=== PATIENT | male | born 1970 | race Caucasian/White ===

== ENCOUNTER 2016-10-13 00:10 | Inpatient (IN) | payer MEDICAID ==
[~2016-10-13] VITALS: Ht 193 cm; Wt 75.7 kg
[2016-10-13] VITALS (14 sets, daily range): BP systolic 108–155; BP diastolic 68–106
[~2016-10-13 00:10] MED LIST: ACET-687 PO; CIPR500T86 PO; DULO20CA PO; FLAV100T PO; GABA300C10 PO; VARE1TAB20 PO
[2016-10-13] MEDS ORDERED: LACTATED RINGERS 1,000 ML ONE ×3 (05:17→09:12)
[2016-10-13] MEDS ORDERED: LEVAQUIN 100 ML IV ONE ×2 (05:18→06:00)
[2016-10-13] MEDS ORDERED: LACTATED RINGERS 1,000 ML IV SCH ×2 (06:00→09:30)
[2016-10-13] MEDS ORDERED: TYLENOL PO STA ×2 (06:36→09:19)
[2016-10-13] MEDS ORDERED: SODIUM CHLORIDE IR ONE (07:46)
[2016-10-13] MEDS ORDERED: DECADRON ONE (07:53)
[2016-10-13] MEDS ORDERED: XYLOCAINE ONE (07:54)
[2016-10-13] MEDS ORDERED: ZOFRAN ONE (07:54)
[2016-10-13] MEDS ORDERED: TORADOL ONE (07:54)
[2016-10-13] MEDS ORDERED: SUBLIMAZE ONE (07:54)
[2016-10-13] MEDS ORDERED: KETAMINE HCL-Non-Preferred ONE (07:54)
[2016-10-13] MEDS ORDERED: DIPRIVAN IV ONE (07:55)
[2016-10-13] MEDS ORDERED: SENSORCAINE-MPF 0.5% VIAL ONE (08:26)
[2016-10-13] MEDS ORDERED: DILAUDID ONE (09:15)
[2016-10-13] MEDS ORDERED: DEMEROL IV STA (09:20)
[2016-10-13] MEDS ORDERED: PHENERGAN IV STA (09:20)
[2016-10-13] MEDS ORDERED: DEMEROL ONE (09:25)
[2016-10-13] MEDS ORDERED: PHENERGAN ONE (09:25)
[2016-10-13] MEDS ORDERED: LEVAQUIN IV SCH (09:30)
[2016-10-13] MEDS ORDERED: DEMEROL IV PRN (09:30)
[2016-10-13] MEDS ORDERED: NORCO 7.5MG PO PRN (09:30)
[2016-10-13] MEDS ORDERED: PHENERGAN IV PRN (09:30)
[2016-10-13] MEDS ORDERED: NORCO 7.5MG PO ONE (11:24)
[2016-10-13] MEDS: NORCO 7.5MG PO PRN ×2 (11:25→17:29)
--- NOTE | 2016-10-13 13:01 | OPH ---
DATE OF SURGERY: 10/13/2016 PREOPERATIVE DIAGNOSES: 1. Neurogenic bladder. 2. Urinary retention. 3. Multiple large bladder calculi. FINAL DIAGNOSES: 1. Neurogenic bladder. 2. Urinary retention. 3. Multiple large bladder calculi. PROCEDURE: Suprapubic vesicolithotomy with insertion of cystostomy tube. DESCRIPTION OF PROCEDURE: The patient was brought to the operating room, was put in supine position on the operating room table. After the patient was given a satisfactory and adequate general anesthesia, the lower abdomen and the genitalia was then prepped and draped aseptically in the usual manner. First, the urethral Hinojosa catheter was irrigated and was inserted, fluid was instilled into the bladder around 100 mL of fluid and then the catheter was clamped. After the patient was prepped and draped aseptically in the usual manner, a Pfannenstiel suprapubic incision was then done one finger-breadth above the pubic bone. Incision was deepened up to subcutaneous tissue. All bleeders were clamped and fulgurated and the anterior rectus sheath was incised along the and the rectus muscle was spread underneath it. The rectus muscle was then spread on the midline and then the bladder was exposed with the use of a Deejay retractor. The suprapubic area of the bladder was then dissected and then with 2 Allis clamp the top of the bladder was then punctured and the fluid was removed and two clamps were placed at the area of the cystostomy and this was enlarged. At this time, the of the bladder was inspected and multiple large bladder calculi was removed and also the urethral Hinojosa catheter was also removed. After removal of all the stones in the bladder, a 26-Tajik Hinojosa catheter was inserted as the cystostomy tube. The balloon was inflated with 10 mL of sterile water. The bladder was then approximated and it was closed with the use of 0-chromic catgut in an interrupted fashion. After this was done, the bladder was again irrigated. There was no leak noted and the return flow was clear. A Brimfield drain was placed in the space of Retzius and then the rectus muscle was approximated with the use of 0 Vicryl in interrupted fashion and the rectus sheath was also approximated with the use of 0 Vicryl in interrupted fashion. 2-0 plain was used to approximate the subcutaneous tissue and the skin staple was used to approximate the skin. The Brimfield drain was anchored to the skin with the use of 0 silk and also the suprapubic tube was also anchored to the skin with the use of 0 silk. After that dressing was applied. The patient was then awakened, was transferred to the recovery room in stable condition. Joshua Musa MD DR: RAÚL/meme JOB# [id number]
[2016-10-13] MEDS ORDERED: NEURONTIN ONE (13:56)
[2016-10-13] MEDS ORDERED: URISPAS PO ONE (13:56)
[2016-10-13] MEDS: URISPAS PO SCH ×2 (14:11→20:37)
[2016-10-13] MEDS: NEURONTIN PO SCH ×2 (14:11→20:37)
--- NOTE | 2016-10-13 18:55 | NUR ---
Report Received report from EMILY Montgomery
[2016-10-13] MEDS: DEMEROL IV PRN (19:59)
[2016-10-13] MEDS: PHENERGAN IV PRN (19:59)
[2016-10-13] MEDS: CYMBALTA PO SCH (20:37)
[2016-10-14] VITALS: BP 124/76
[2016-10-14] MEDS: NORCO 7.5MG PO PRN ×6 (00:08→23:35)
[2016-10-14] MEDS: DEMEROL IV PRN ×5 (02:12→20:23)
[2016-10-14] MEDS: PHENERGAN IV PRN (02:12)
[2016-10-14 04:00] VITALS: BP 130/82
--- NOTE | 2016-10-14 04:01 | NUR ---
Patient resting in bed with eyes clsoed. Resp even and non labored. No s/s of distress noted at this time. Will continue to monitor. Call light within reach.
[2016-10-14 05:50] LABS: HEMATOCRIT 36.6 % (37.0-53.0); HEMOGLOBIN 11.6 g/dL (13.9-16.3); MEAN CELL HGB 29.9 pg (26-34); MEAN CELL HGB CONCENTRATION 31.7 g/dL (33-37); MEAN CORP VOLUME 94.3 fL (78-100); MEAN PLATELET VOLUME 8.6 fL (7.8-11.0); RED BLOOD CELL 3.88 10^6/uL (4.50-5.90); WHITE BLOOD CELL 16.1 10^3/uL (4.5-11.0)
[2016-10-14] MEDS: LACTATED RINGERS 1,000 ML IV SCH ×2 (05:59→06:00)
[2016-10-14] MEDS ORDERED: LEVAQUIN 100 ML IV ONE (06:00)
--- NOTE | 2016-10-14 06:56 | PRM.ACF1 ---
Admission Criteria Forms AMBULATORY SURGERY EXCEPTION CRITERIA Ambulatory Surgery Exception Criteria ( Place 'X' for any and all applicable criteria): Surgery or procedure performed on ambulatory basis may require inpatient stay for[A] ANY ONE of the following(1)(2)(3)(4)(5)(6)(7)(8)(9): [X] I. A preoperative situation, condition, or finding that warrants inpatient stay as indicated by ANY ONE of the following: [] a) Inpatient care needed because of severity of a disease or condition rather than the surgery (eg, severe cardiac or respiratory disease, severe infection) (15) (16 ) (17) (18) [] b) Emergent procedure (eg, angioplasty for acute ischemia)(19) [] c) Complex surgical approach or situation as indicated by ANY ONE of the following(3): [] i) Open approach needed instead of usual endoscopic, transcatheter, or other less invasive procedure [] ii) Difficult approach because of previous operation [] iii) Airway monitoring required after open neck procedures(20)(21 ) [] iv) Large mass requiring unusually extensive dissection [] v) Additional complicating feature requiring inpatient care (eg , drain management)(22(23): [X] d) Major surgery in a pt with high anesthetic risk as indicated by ANY ONE of the following (2)(3)(5)(7)(8): [X] i) ASA risk class III or higher (severe systemic disease impairing function) [D] [] ii) Advanced age (eg, older than 85 years)(14)(24) [] iii) Symptomatic heart failure(25) [] iv) Symptomatic asthma or COPD(8)(21) [] v) Morbid obesity with hemodynamic or respiratory problems(20)( 21)(26)(27) [] vi) Obstructive sleep apnea(20)(21) [] vii) Former premature infants who are younger than 60 weeks [] viii) High risk for severe postoperative abnormalities (eg, severe postoperative hypocalcemia after parathyroidectomy for severe hyperparathyroidism)(27)( 28) [] ix) Unstable angina(25) [] e) Drug-related risk requiring inpatient stay as indicated by ANY ONE of the following(5)(10)(14)(32)(33) [] i) Procedure requires discontinuing drugs or other therapy (eg , antiarrhythmic medication, antiseizure medication), which necessitates inpatient observation or treatment.(18)(31) [] ii) Major surgery and high risk drug use as indicated by ANY ONE of the following: [] 1) Active abuse of cocaine or similar drug [] 2) Monoamine oxidase inhibitor use [] 3) Other drug identified as posing risk [] f) Inadequate outpatient care situation as indicated by ANY ONE of the following(5)(10)(14)(32)(33) [] i) Patient lives remote from medical facility and procedure has urgent complication potential, and temporary nearby residence cannot be arranged [] ii) Patient will have postprocedure incapacitation and inadequate assistance at home, or alternative level of care cannot be arranged. [] iii) Patient will have long general anesthesia or procedure side effect resolution time, and competent person to stay with patient on first postoperative night at home or alternative level of care cannot be arranged. [] iv) Other inadequate outpatient situation that cannot be handled by other means [] II. A perioperative event, condition, or finding that warrants inpatient stay as indicated by ANY ONE of the following (1)(2)(3): [] a) Inadequate physiologic recovery: cardiovascular, respiratory, or hemodynamic status not normal or near preoperative baseline(18) [] b) Hemodynamic instability [] c) Patient not alert with near normal or baseline mental status [] d) Temperature not normal or as expected and not appropriate for outpatient treatment of condition [] e) Ambulatory or appropriate activity level status not yet achieved post procedure [E](34)(35)(36) [] f) Operative site not appropriate (eg, unexpected or excessive drainage or bleeding) [] g) Postoperative effects not resolved or adequately managed (eg, significant pain or vomiting not appropriate for outpatient or next level of care)(10)(12) [] h) Complicating features requiring inpatient care as indicated by ANY ONE of the following(37): [] i) Severe complications of procedure (eg, bowel injury, airway compromise, vascular injury,severe hemorrhage) [] ii) Extensive (eg, dissection far beyond usual scope of procedure ) or prolonged (eg, 120 minutes beyond usual) surgery needed requiring inpatient postoperative care [] iii) Conversion to an open or complex procedure that requires inpatient care (eg, open vs laparoscopic cholecystectomy, abdominal vs vaginal hysterectomy)(38) [] iv) Comorbid condition or test result identified during or post procedure that requires inpatient care (7) [] v) Malignant hyperthermia(30) [] vi) Other complicating feature requiring inpatient care(22)(23) Inpatient stay may be needed until ALL of the following are present (1)(2)(3)(4) (5)(6)(10)(14)(33)(40): []a) Physiologic recovery: cardiovascular, respiratory, and hemodynamic status normal or near preoperative baseline []b) Hemodynamic stability []c) Patient alert, with near normal or baseline mental status []d) Temperature appropriate: patient afebrile or temperature appropriate for outpt treatment of condition []e) Activity level appropriate: ambulatory or appropriate activity level post procedure []f) Operative site appropriate as indicated by ALL of the following: []i) Site dry or with expected drainage []ii) Any blood noted is as expected for procedure. []g) Postoperative effects resolved or managed as indicated by ALL of the following: []i) Pain management appropriate for outpatient (or next level of) care(10) []ii) Minimal nausea and vomiting: if present, successfully treated with oral medication(12) []iii) Headache, dizziness, or drowsiness (if present) are mild. []h) Voiding status acceptable as indicated by ANY ONE of the following: []i) Voiding spontaneously []ii) No voiding but instructions given for follow-up in 6 to 8 hours []iii) Urinary catheter in place, and instructions given for follow-up []i) Complicating features requiring inpatient care manageable at a lower level of care(37) []j) Comorbid conditions manageable at a lower level of care(37) The original [employer] content created by [employer] has been revised. The portions of the content which have been revised are identified through the use of italic text or in bold, and [employer] has neither reviewed nor approved the modified material. All other unmodified content is copyright [employer]. Please see references footnoted in the original [employer] edition 2016 Is [facility]/Daniel's added/comple: YES JOSE PAINTER [facility] Oct 14, 2016 06:56
[2016-10-14] MEDS: LEVAQUIN IV SCH (07:27)
[2016-10-14 08:00] VITALS: BP 115/73
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
[2016-10-14] MEDS: NEURONTIN PO SCH ×3 (09:23→20:22)
[2016-10-14] MEDS: URISPAS PO SCH ×3 (09:23→20:22)
[2016-10-14] MEDS: CYMBALTA PO SCH ×2 (09:23→20:22)
--- NOTE | 2016-10-14 10:02 | PNH ---
DATE: 10/14/2016 SUBJECTIVE: The patient's postoperative day #1, afebrile. Vital signs are stable. The cystostomy tube is in place and draining clear urine. The dressing is dry. However, the CBC today, the white count went up to over 16,000. So, I will admit the patient today and then change the antibiotic and we will discontinue Levaquin and start with Rocephin 1 gram every 24 hours and with the Tobramycin 80 mg IV piggyback every 8 hours. PLAN: We will repeat the CBC tomorrow. Right now the patient feels comfortable and we will follow him . Joshua Musa MD DR: RAÚL/meme JOB# [id number]
[2016-10-14] MEDS: ROCEPHIN 1,000 MG in NS 100ML 100 ML IV SCH (11:11)
--- NOTE | 2016-10-14 11:42 | NUR ---
ua ua collected from [facility] and sent to lab
[2016-10-14 11:59] LABS: APPEARANCE,URINE HAZY (CLEAR); BILIRUBIN,URINE NEGATIVE (NEGATIVE); PH,URINE 8 (5.0-6.0); UA COLOR YELLOW (YELLOW); UROBILINOGEN,URINE NORMAL (NEGATIVE)
[2016-10-14 12:00] LABS: WBC,URINE TNTC WBC/HPF (0-2)
[2016-10-14] MEDS ORDERED: MISC MC SCH (14:00)
[2016-10-14] MEDS: NEBCIN IV SCH ×2 (14:04→22:00)
[2016-10-14] MEDS: NS IV SCH ×2 (14:04→22:00)
[2016-10-14 16:40] VITALS: BP 106/69
[2016-10-14 16:43] VITALS: BP 125/66
[2016-10-14 20:00] VITALS: BP 106/71
[2016-10-15] VITALS (7 sets, daily range): BP systolic 100–129; BP diastolic 65–90
[2016-10-15] MEDS: DEMEROL IV PRN ×3 (00:40→08:55)
--- NOTE | 2016-10-15 03:12 | NUR ---
patient able to turn self Addendum: 10/15/16 at 0319 by Peace Napier RN RN Amended: Links added.
[2016-10-15] MEDS: LACTATED RINGERS 1,000 ML IV SCH ×2 (04:07→19:45)
[2016-10-15] MEDS: NS IV SCH ×3 (05:11→21:50)
[2016-10-15] MEDS: NEBCIN IV SCH ×3 (05:11→21:50)
[2016-10-15 05:53] LABS: BASOPHIL % 0.1 % (0.0-0.2); EOSINOPHIL # 0.2 10^3/uL (0.0-0.2); EOSINOPHIL % 1.4 % (0.0-5.0); HEMOGLOBIN 10.5 g/dL (13.9-16.3); LYMPHOCYTES # 3.1 10^3/uL (1.0-4.8); LYMPHOCYTES % 18.4 % (24.0-44.0); MEAN CELL HGB 29.8 pg (26-34); MEAN CELL HGB CONCENTRATION 31.8 g/dL (33-37); MEAN CORP VOLUME 93.8 fL (78-100); MEAN PLATELET VOLUME 8.9 fL (7.8-11.0); MONOCYTES # 1.2 10^3/uL (0.3-0.8); MONOCYTES % 6.9 % (5.0-12.0); NEUTROPHIL # 12.3 10^3/uL (1.8-7.7); NEUTROPHILS % 72.9 % (41.0-85.0); RED BLOOD CELL 3.52 10^6/uL (4.50-5.90); RED CELL DISTRIBUTION WIDTH 13.9 % (11.5-14.5); WHITE BLOOD CELL 16.9 10^3/uL (4.5-11.0)
--- NOTE | 2016-10-15 07:00 | NUR ---
REPORT REPORT RECEIVED AND ASSUMED CARE OF PT
[2016-10-15] MEDS: LEVAQUIN IV SCH (08:00)
--- NOTE | 2016-10-15 08:00 | NUR ---
ASSESSMENT ASSESSMENT COMPLETE AT THIS TIME. PT LAYING DOWN IN BED. C/O PAIN TO LOWER ABD 10/10. DEMEROL 25MG IVP ADMINISTERED PER ORDERS. LUNGS CTA. RESPIRATIONS EVEN AND NONLABORED. ABD SOFT AND NONDISTENDED. BOWEL SOUNDS ACTIVE X4. NO SWELLING NOTED TO BLE. RADIAL AND PEDAL PULSES PRESENT AND WNL. ALL NEEDS MET. CALL LIGHT WITHIN REACH.
[2016-10-15] MEDS: NEURONTIN PO SCH ×3 (08:12→20:29)
[2016-10-15] MEDS: NORCO 7.5MG PO PRN ×3 (08:12→19:46)
[2016-10-15] MEDS: URISPAS PO SCH ×3 (08:12→20:29)
[2016-10-15] MEDS: CYMBALTA PO SCH ×2 (08:12→20:29)
--- NOTE | 2016-10-15 11:17 | PNH ---
DATE: 10/15/2016 Postoperative day #2, the patient is afebrile. Cystostomy tube in place, urine is clear. Dressing is dry. However, the white count today went up to 16,900. The patient, at this time, is on Rocephin and tobramycin and we are awaiting the report of the urine culture. The patient's status is stable. He is afebrile and vital signs are stable. He feels comfortable. He is eating well and we will continue to antibiotic, but also give a consultation to Dr. Anastacio Marcial, our Hospitalist for further evaluation. Joshua Musa MD DR: RAÚL/meme JOB# [id number]
[2016-10-15] MEDS: DILAUDID IV PRN ×4 (11:51→23:58)
[2016-10-15] MEDS: ROCEPHIN 1,000 MG in NS 100ML 100 ML IV SCH (11:54)
--- NOTE | 2016-10-15 12:00 | NUR ---
DILAUDID DILAUDID 1MG ADMINISTERED PER PRN ORDERS. EDUCATED PT ON S/S OF REACTION. STATES UNDERSTANDING.
--- NOTE | 2016-10-15 15:45 | NUR ---
IV PAIN MED DR MOSQUEDA NOTIFIED OF PTS REQUEST OF IV PAIN MEDS EVERY 2 HOURS. NO NEW ORDERS RECEIVED AT THIS TIME.
--- NOTE | 2016-10-15 15:48 | NUR ---
BEHAVIOR ENTERED PTS ROOM WITH PAIN MEDICATION AT THIS TIME. PT STATES "THIS IS FUCKING RIDICULOUS. I SHOULD BE GETTING PAIN MEDICATION EVERY 2 HOURS" EXPLAINED PTS PAIN MEDICATION SCHEDULE TO HIM. EXPLAINED THAT SOON THIS NURSE CAME OUT OF OTHER'S PT ROOM PAIN MEDICATION WAS OBTAINED. PT STATES "I DONT GIVE A FUCK. I CAN TAKE THIS AT HOME. I'M LEAVING" PT CALLED AT THIS TIME. EDUCATED PT ON RISKS OF LEAVING WITHOUT PROPER MEDICATION AND ANTIBIOTICS. PTS CONTS TO STATE HE IS LEAVING. PT REFUSES TO TAKEN PAIN MEDICATION. DR MCKEON AND DR MOSQUEDA NOTIFIED. DR. MCKEON WANTS TO SPEAK WITH UPON ARRIVAL.
--- NOTE | 2016-10-15 16:39 | NUR ---
PAIN PT RESTING IN BED WITH EYES CLOSED. NO S/S OF PAIN OR DISCOMFORT. REQUESTING DILAUDID IVP FOR PAIN 03/04 TO LOWER ABD. DILAUDID 1MG IVP ADMINISTERED PER PRN ORDERS. TOLERATED WELL. CONT TO EDUCATED PT ON RISK OF SPESIS. PT STATES "I DONT CARE. I HAVE MEDICINE AT HOME I CAN TAKE"
--- NOTE | 2016-10-15 18:37 | NUR ---
REPORT REPORT GIVEN AND RELINQUISHED CARE
--- NOTE | 2016-10-15 18:40 | NUR ---
RECEIVED REPORT FROM 0630 SHIFT
--- NOTE | 2016-10-15 19:46 | NUR ---
norco 7.5/325 x1 po given for pain
[2016-10-15] MEDS ORDERED: NS 100ML 100 ML IV ONE (20:26)
--- NOTE | 2016-10-15 20:31 | NUR ---
dilaudid 1mg iv given for pain
--- NOTE | 2016-10-15 21:53 | PRM.CONS ---
Consultation Reason for Consult: Reason for Consultation: Urine infection with leukocytosis, referral from Dr Pierre with Urology History of Present Illness Current and Past HX: (1) UTI (urinary tract infection) Status: Acute SEVERITY: MODERATE PERSISTENT ICD Code: N39.0 SNOMED: 81383655 Assessment & Plan: Significant leukocytosis, due to neurologic disease his UTI is not causing dysuria but he does have significant leukocytosis (2) Urinary retention Status: Acute SEVERITY: MODERATE PERSISTENT ICD Code: R33.9 SNOMED: 702174351 Assessment & Plan: Managed by Urology (3) Bladder calculi Status: Acute SEVERITY: MODERATE PERSISTENT ICD Code: N21.0 SNOMED: 92515155 Assessment & Plan: Resolved s/p surgical procedure Social and Family History: History of Patient Comments PMHx - chronic pain PSHx - s/p bladder surgery with suprapubic catheter placement, previous right hand surgery All: NKDA Home meds - please see home med reconciliation SocHx - positive tobacco use, denies alcohol or illicit drug use FamHx - no early CAD or DM Review of Systems Constitutional: No: Chills, Fever, Weakness Eyes: No: Conjunctivae inflammation ENT: No: Mouth swelling, Nose discharge, Throat pain Respiratory: No: Cough, Shortness of breath, Wheezing Cardiovascular: No: Chest Pain, Palpitations, Paroxysmal Noc. Dyspnea Gastrointestinal: : Abdominal PainNo: Nausea, Vomiting Genitourinary: No Dysuria, No Incontinence Musculoskeletal: : back painNo: neck pain Skin: No: Jaundice, Lesions, Rash Neurological: : WeaknessNo: Change in speech, Confusion, Seizures Allergies: Coded Allergies: No Known Allergies (Unverified , 09/17/16) Scheduled Duloxetine Hcl (Cymbalta) 1 CAP PO BID (Reported) Flavoxate Hcl (Flavoxate Hcl) 100 MG PO TID Gabapentin (Gabapentin) 1 CAP PO TID (Reported) Scheduled PRN Acetaminophen With Codeine (Tylenol With Codeine #4 Tablet) 1 TAB PO Q4 PRN PRN PAIN (Reported) Discontinued Medications Ciprofloxacin Hcl (Cipro) 500 MG PO BID Discontinued Reason: No Longer Taking Varenicline Tartrate (Chantix) 1 MG PO BID (Reported) Discontinued Reason: No Longer Taking VTE VTE Risk Total Score: 4 VTE Risk Score VTE Risk: Score 0-1 = Low Risk (Aggressive mobilization; early ambulation; no VTE prophylaxis required) Score 2: Moderate Risk (Intermittent/Pneumatic Compression Device OR Lovenox/Heparin/Coumadin) Score 3-4: High Risk (Intermittent/Pneumatic Compression Device AND Lovenox/Heparin/Coumadin) Score > or =5: Highest Risk (Intermittent/Pneumatic Compression Device AND Lovenox/Heparin/Coumadin) Assessment/Plan Assessment/Plan Assessment/Plan Assessment: Mr Purvis is a 46 year old man s/p bladder surgery for bladder calculus and urinary retention here with: 1. Chronic pain 2. UTI 3. Tobacco abuse Problems: Patient History: No known health problems 19 CHILD 19 CHILD 19 CHILD 19 CHILD Unknown 33 FATHER Plan 1. Chronic pain - continue current pain management, he is asking for Demerol by name, discussed plan for Dilaudid IV for pain control and he voiced understand but later insisted on getting Dilaudid more frequently while refusing Austin and falling asleep shortly after asking for pain medication. 2. UTI - continue current IV antibiotics, follow up urine C&S 3. Tobacco abuse - program counselor on smoking cessation, offered nicotine patch Plan discussed with patient, he is his own decision maker and does understand and concur with plan Time spent 45 minutes Problem Qualifiers (1) UTI (urinary tract infection): Urinary tract infection type: acute cystitis Hematuria presence: without hematuria Qualified Code: N30.00 - Acute cystitis without hematuria YORDY MOSQUEDA MD Oct 15, 2016 21:50
--- NOTE | 2016-10-15 23:05 | NUR ---
pt wears bilateral boots to help with foot drop, c/o pain and sensitivity to b feet. declined scds, because he does not wanrt to go with out boots, report to charge nurse
--- NOTE | 2016-10-15 23:58 | NUR ---
dilaudid 1mg iv given for pain /10
--- NOTE | 2016-10-16 01:16 | NUR ---
SUPINE IN BED RESTING QUIETLY WITH EYES CLOSED NAD OBSERVED CALL LIGHT IN PT REACH
[2016-10-16] MEDS: NORCO 7.5MG PO PRN ×6 (01:58→23:54)
--- NOTE | 2016-10-16 02:00 | NUR ---
NORCO 7.5/325 X1 GIVEN FOR PAIN 12/02
[2016-10-16 04:00] VITALS: BP 116/73
[2016-10-16] MEDS: DILAUDID IV PRN ×5 (04:17→22:01)
--- NOTE | 2016-10-16 04:17 | NUR ---
dilaudid 1mg iv given for pain 01/02
[2016-10-16] MEDS ORDERED: NS 100ML 100 ML IV ONE ×3 (04:19→20:48)
[2016-10-16] MEDS: LACTATED RINGERS 1,000 ML IV SCH ×2 (04:22→18:55)
[2016-10-16] MEDS: NS IV SCH ×3 (05:04→21:51)
[2016-10-16] MEDS: NEBCIN IV SCH ×3 (05:04→21:51)
[2016-10-16 05:27] LABS: BASOPHIL % 0.1 % (0.0-0.2); EOSINOPHIL # 0.4 10^3/uL (0.0-0.2); EOSINOPHIL % 2.6 % (0.0-5.0); HEMATOCRIT 32.3 % (37.0-53.0); HEMOGLOBIN 10.5 g/dL (13.9-16.3); LYMPHOCYTES # 2.2 10^3/uL (1.0-4.8); LYMPHOCYTES % 15.1 % (24.0-44.0); MEAN CELL HGB 30.1 pg (26-34); MEAN CELL HGB CONCENTRATION 32.5 g/dL (33-37); MEAN CORP VOLUME 92.6 fL (78-100); MEAN PLATELET VOLUME 8.5 fL (7.8-11.0); MONOCYTES # 0.9 10^3/uL (0.3-0.8); MONOCYTES % 6.1 % (5.0-12.0); NEUTROPHIL # 11.3 10^3/uL (1.8-7.7); NEUTROPHILS % 75.9 % (41.0-85.0); RED BLOOD CELL 3.49 10^6/uL (4.50-5.90); RED CELL DISTRIBUTION WIDTH 13.7 % (11.5-14.5); WHITE BLOOD CELL 14.8 10^3/uL (4.5-11.0)
[2016-10-16 05:43] LABS: ANION GAP 17.7; CALCIUM 8.7 mg/dL (8.4-10.5); CARBON DIOXIDE 24.8 mmol/L (20.0-32); CREATININE SERUM 0.77 mg/dL (0.59-1.40); GLUCOSE 72 mg/dL (70-110)
--- NOTE | 2016-10-16 06:50 | NUR ---
Report received from DINORAH Camarena and [facility].
--- NOTE | 2016-10-16 06:56 | NUR ---
Patient complained of pain 01/02. Austin 7.5/325 x1 given.
--- NOTE | 2016-10-16 07:30 | NUR ---
Breakfast tray served. Patient refused breakfast which consist of toast and egg. Patient said he cannot look at egg and toast because he was in the hospital for 5 months and that was the only thing he ate every single breakfast. Offered patient if he wants some soup or cracker. Patient declined and he said he will wait for lunch.
[2016-10-16 08:11] VITALS: BP 105/68
[2016-10-16] MEDS: URISPAS PO SCH ×3 (09:15→20:52)
[2016-10-16] MEDS: CYMBALTA PO SCH ×2 (09:15→20:52)
[2016-10-16] MEDS: NEURONTIN PO SCH ×3 (09:15→20:52)
--- NOTE | 2016-10-16 09:17 | NUR ---
Patient complained of pain 02/01. Dilaudid 1 mg IV given.
--- NOTE | 2016-10-16 10:35 | NUR ---
Dr. Musa at bedside. Discuss plan of care with the patient. Repeat CBC tomorrow. Order entered by EMILY Martinez (charge nurse).
[2016-10-16] MEDS: ROCEPHIN 1,000 MG in NS 100ML 100 ML IV SCH (11:14)
--- NOTE | 2016-10-16 11:20 | NUR ---
Report given to EMILY Dimas and [facility].
--- NOTE | 2016-10-16 11:21 | NUR ---
REPORT REPORT RECEIVED FROM PARTS ASSEMBLER. ASSUMED CARE OF PT.
--- NOTE | 2016-10-16 11:41 | PNH ---
DATE: 10/16/2016 Postoperative day #3, the patient is afebrile. Vital signs are stable. Cystostomy tube in place, urine is clear. The CBC today, the white count went down from 16.9 to 14,900 today. The patient is improving. We will continue the Rocephin and tobramycin. We will repeat again the CBC tomorrow and if it is going down some more, he will be discharge and I will remove the Osmin drain tomorrow. The case was discussed with the patient and the patient feels comfortable and doing much better. Joshua Musa MD DR: RAÚL/meme JOB# [id number]
[2016-10-16 12:25] VITALS: BP 123/74
[2016-10-16 12:29] VITALS: BP 108/68
--- NOTE | 2016-10-16 15:11 | NUR ---
[facility] NOTIFIED OF PT'S ADMISSION, AND UPDATED INFORMATION WAS FAXED OVER TO [facility] REGARDING PT'S HOSPITAL VISIT. NO FURTHER NEEDS NOTED AT THIS THIS TIME. SS TO CONTINUE TO MONITOR AND ASSIST WITH DISCHARGE PLANNING NEEDS.
--- NOTE | 2016-10-16 15:16 | NUR ---
STATUS PT IN BED, AWAKE AND ALERT. NO SIGNS OF DISTRESS NOTED. CALL LIGHT WITHIN REACH. WILL CONTINUE TO MONITOR.
[2016-10-16 16:04] VITALS: BP 119/78
[2016-10-16 19:30] VITALS: BP 125/84
--- NOTE | 2016-10-16 19:53 | NUR ---
Anthon 7.5/325 x1 po given for pain
--- NOTE | 2016-10-16 22:29 | NUR ---
dilaudid 1mg iv given for pain
--- NOTE | 2016-10-16 23:54 | NUR ---
norco 7.5/325 x1 po given for pain
[2016-10-17 00:39] VITALS: BP 122/77
[2016-10-17] MEDS: DILAUDID IV PRN ×3 (02:04→10:23)
--- NOTE | 2016-10-17 02:04 | NUR ---
Dilaudid 1mg iv given for pain
[2016-10-17] MEDS: LACTATED RINGERS 1,000 ML IV SCH (04:33)
[2016-10-17] MEDS: NORCO 7.5MG PO PRN ×3 (04:44→13:59)
--- NOTE | 2016-10-17 04:44 | NUR ---
norco 7.5/325 po x1 given for pain
[2016-10-17 04:58] VITALS: BP 117/71
[2016-10-17] MEDS ORDERED: NS 100ML 100 ML IV ONE (05:18)
[2016-10-17] MEDS: NEBCIN IV SCH (05:22)
[2016-10-17] MEDS: NS IV SCH (05:22)
[2016-10-17 06:21] LABS: BASOPHIL % 0.1 % (0.0-0.2); EOSINOPHIL # 0.4 10^3/uL (0.0-0.2); EOSINOPHIL % 3.6 % (0.0-5.0); HEMATOCRIT 31.5 % (37.0-53.0); HEMOGLOBIN 10.1 g/dL (13.9-16.3); LYMPHOCYTES # 1.8 10^3/uL (1.0-4.8); LYMPHOCYTES % 17.5 % (24.0-44.0); MEAN CELL HGB 29.4 pg (26-34); MEAN CELL HGB CONCENTRATION 32.1 g/dL (33-37); MEAN CORP VOLUME 91.6 fL (78-100); MEAN PLATELET VOLUME 8.6 fL (7.8-11.0); MONOCYTES # 0.8 10^3/uL (0.3-0.8); MONOCYTES % 7.9 % (5.0-12.0); NEUTROPHIL # 7.5 10^3/uL (1.8-7.7); NEUTROPHILS % 70.7 % (41.0-85.0); RED BLOOD CELL 3.44 10^6/uL (4.50-5.90); RED CELL DISTRIBUTION WIDTH 13.3 % (11.5-14.5); WHITE BLOOD CELL 10.5 10^3/uL (4.5-11.0)
[2016-10-17 08:00] VITALS: BP 111/77
[2016-10-17] MEDS: CYMBALTA PO SCH (08:06)
[2016-10-17] MEDS: NEURONTIN PO SCH (08:06)
[2016-10-17] MEDS: URISPAS PO SCH (08:11)
--- NOTE | 2016-10-17 08:26 | NUR ---
pt refuses SCD due to foot drop braces in place. pt also states the scd cause pain to legs Addendum: 10/17/16 at 837 by Luz Maria Rudolph LVN - Med Surg PROFESSIONAL [employer] Amended: Links added. Addendum: 10/17/16 at 837 by Luz Maria Rudolph LVN - Med Surg PROFESSIONAL [employer]ER PLAYER Amended: Links added.
[2016-10-17] MEDS: ROCEPHIN 1,000 MG in NS 100ML 100 ML IV SCH (10:39)
[2016-10-17] MEDS ORDERED: SULF1TAB24 PO (10:51)
--- NOTE | 2016-10-17 11:34 | NUR ---
Dr.Grabato Rudd, EMILY into room with . Drain pulled per EMILY Rudd. Pt to be discharged today.
[2016-10-17 14:28] VITALS: BP 111/77
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
== END 2016-10-17 15:00 | disposition home or self-care (01) | DRG 710 ==
LOC: SURG 00:10 → MS 09:14 → OBSVTOIN 10:00
PROVIDERS: ADMIT Urology; ATTEND Urology
PROC: 0T9B00Z Drainage of Bladder with Drainage Device, Open Approach (ICD-10-PCS; 2016-10-13)
PROC: 0TCB0ZZ Extirpation of Matter from Bladder, Open Approach (ICD-10-PCS; principal; 2016-10-13 07:57)
DX: A41.9 Sepsis, unspecified organism (principal); N30.00 Acute cystitis without hematuria; N31.9 Neuromuscular dysfunction of bladder, unspecified; N21.0 Calculus in bladder; G89.29 Other chronic pain; B96.20 Unspecified Escherichia coli [E. coli] as the cause of diseases classified elsewhere; Z72.0 Tobacco use
CPT/HCPCS: 36415; 80048; 81000; 85025; 85027; 87077; 87086; 87186; G0378; J0696; J1100; J1170; J1885; J1956; J2175; J2405; J2550; J3010; J3490; J7030; J7120; C9399; J3260

== ENCOUNTER 2016-10-20 20:25 | Inpatient (IN) | payer MEDICAID ==
[~2016-10-20] VITALS: Ht 193 cm; Wt 69.9 kg
[2016-10-20] MEDS: NS IV SCH (00:30)
[2016-10-20] MEDS: GENTAMICIN SULFATE IV SCH (00:30)
[~2016-10-20 20:25] MED LIST changes: +SULF1TAB24 PO
--- NOTE | 2016-10-20 20:49 | ER.PDOC ---
General Chief Complaint: Male Stated Complaint: MALE Time seen by MD: 20:49 Source: patient History of Present Illness Initial Comments pt was operated upon by Dr. Mckeon for bladder stone and he lives in [place], he is paralysed. he went to [facility] for f/u and was sent home. he came back to f/u with Dr. Mckeon who wanted to admit pt for hospitalist service Allergies: Coded Allergies: No Known Allergies (Unverified , 09/17/16) Home Meds Reported Medications Duloxetine Hcl (Cymbalta)20 Mg Capsule.dr1 Cap PO BID #30 CAP Ref 2 09/17/16 Gabapentin 300 Mg Capsule1 Cap PO TID #90 CAP Ref 5 09/17/16 Acetaminophen With Codeine (Tylenol With Codeine #4 Tablet)1 Each Tablet1 Tab PO Q4 PRN PAIN #120 TAB 09/17/16 Discontinued Reported Medications Varenicline Tartrate (Chantix)1 Each Tab.ds.pk1 Mg PO BID 09/17/16 Discontinued Scripts Sulfamethoxazole/Trimethoprim (Bactrim Ds Tablet)1 Each Tablet1 Each PO BID #20 TABLET Ref 0 Prov:ROSE WARREN MD 10/17/16 Flavoxate Hcl 100 Mg [id number] Mg PO TID #7 Prov:COLTON MCKEON MD 09/28/16 Ciprofloxacin Hcl (Cipro)500 Mg [id number] Mg PO BID #14 Prov:COLOTN MCKEON MD 09/28/16 Social History Smoking: cigarettes, less than 1 pack/day Alcohol Use: none Drug Use: none Review of Systems Constitutional: see HPI EENTM: no symptoms reported Respiratory: no symptoms reported Cardiovascular: no symptoms reported Gastrointestinal: no symptoms reported Genitourinary: see HPI Musculoskeletal: no symptoms reported Skin: no symptoms reported Psychiatric/Neurological: no symptoms reported Endocrine: no symptoms reported Hematologic/Lymphatic: no symptoms reported All Other Systems: Reviewed and Negative Physical Exam General Appearance: No Apparent Distress EENT: eyes nml inspection Neck: nml inspection Cardiovascular/Respiratory: Regular Rate, Rhythm Extremities: Other (baseline paraplegia ) Neurologic/Psychiatric: Alert, Oriented x 3 Skin: Other (post op wound is red and tender with some pus drainage ) Results/Orders Results/Orders Laboratory Tests Test 10/20/16 21:20 White Blood Count 9.310^3/uL (4.5-11.0) Red Blood Count 3.9410^6/uL (4.50-5.90) Hemoglobin 11.9g/dL (13.9-16.3) Hematocrit 36.5% (37.0-53.0) Mean Corpuscular Volume 92.6fL (78-100) Mean Corpuscular Hemoglobin 30.2pg (26-34) Mean Corpuscular Hemoglobin Concent 32.6g/dL (33-37) Red Cell Distribution Width 14.5% (11.5-14.5) Platelet Count 44575^3/uL (150-400) Mean Platelet Volume 8.5fL (7.8-11.0) Neutrophils (%) (Auto) 64.8% (41.0-85.0) Lymphocytes (%) (Auto) 22.0% (24.0-44.0) Monocytes (%) (Auto) 6.3% (5.0-12.0) Neutrophils # (Auto) 6.010^3/uL (1.8-7.7) Lymphocytes # (Auto) 2.110^3/uL (1.0-4.8) Monocytes # (Auto) 0.610^3/uL (0.3-0.8) Absolute Immature Granulocyte (auto 0.0210^3 u/L (0-2) Eosinophils % 6.4% (0.0-5.0) Basophils % 0.3% (0.0-0.2) Basophils # 0.010^3/uL (0.0-0.1) Eosinophil Count 0.610^3/uL (0.0-0.2) Prothrombin Time 9.9SEC (9.8-11.9) Prothromb Time International Ratio 0.9 Activated Partial Thromboplast Time 25.6SEC (24.67-30.72) Urine Collection Type Unknown Urine Color Yellow (YELLOW) Urine Appearance Slightly cloudy (CLEAR) Urine Bilirubin NegativeMG/DL (NEGATIVE) Urine Ketones Negative (NEGATIVE) Urine Specific Jermyn 1.015 (1.005-1.035) Urine pH 6.5 (5.0-6.0) Urine Protein 15 mg/dl (NEGATIVE) Urine Urobilinogen Normal (NEGATIVE) Urine Nitrate Negative (NEGATAIVE) Urine Leukocyte Esterase 500/ul 2+ (NEGATIVE) Urine Blood 150 3+ (NEGATIVE) Urine RBC 0-2RBC/HPF (NONE SEEN) Urine WBC TntcWBC/HPF (0-2) Urine Squamous Epithelial Cells None seen#/HPF (FEW) Urine Bacteria Few (NONE SEEN) Urine Other 1+ mucus#/HPF Urine Glucose Normal (NEGATIVE) Sodium Level 145mmol/L (132-145) Potassium Level 3.2mmol/L (3.6-5.2) Chloride Level 106.0mmol/L (96-109) Carbon Dioxide Level 30.9mmol/L (20.0-32) Anion Gap 11.3 Blood Urea Nitrogen 7mg/dL (7-18) Creatinine 0.74mg/dL (0.59-1.40) Estimat Glomerular Filtration Rate >60 BUN/Creatinine Ratio 9.0 Glucose Level 110mg/dL (70-110) Calculated Osmolality 298.5 Calcium Level 8.9mg/dL (8.4-10.5) Total Bilirubin 0.1mg/dL (0.2-1.0) Aspartate Amino Transf (AST/SGOT) 19U/L (0-35) Alanine Aminotransferase (ALT/SGPT) 22U/L (12-78) Alkaline Phosphatase 91U/L (50-136) Total Protein 6.8g/dL (6.4-8.2) Albumin 2.6g/dL (3.4-5.0) Globulin 4.2 Percent Immature Gran (Cell Imm) 0.20% (0.00-0.50) Administered Medications Medications (Trade) Dose Ordered Sig/Gilda Route PRN Reason Start Time Stop Time Status Last Admin Dose Admin Ceftriaxone Sodium/Sodium Chloride (Rocephin/NS 100ml) 100 ml @ 100 mls/hr STAT STAT IV 10/20/16 21:24 10/20/16 22:23 10/20/16 21:35 Progress Progress pt was seen by Dr. Mckeon and will be admitted for hospitalist service Departure Time of Disposition: 21:52 Disposition: 09 ADMITTED INPATIENT Impression: Primary Impression: Wound infection after surgery Condition: Stable Referrals: PCP,UNKNOWN (PCP) PRIMARY CARE PROVIDER Problem Qualifiers Primary Impression: Wound infection after surgery Encounter type: sequela Qualified Code: T81.4XXS - Infection following a procedure, NÉSTOR Kearney MD Oct 20, 2016 20:49
[2016-10-20] MEDS ORDERED: ROCEPHIN IV STA (21:00)
--- NOTE | 2016-10-20 21:10 | NUR ---
WOUND CARE SUPRAPUBIC INCISION CLEANSED WITH HYROGEN PEROXIDE. COVERED WITH SPONGE GAUGE AND ABD AND SECURED WITH HYPOFIX TAPE. WOUND EDGES SLIGHTLY RED AND TENDER. SMALL AMOUNT OF SEROUSANGIOUS DRAINAGE NOTED
--- NOTE | 2016-10-20 21:20 | NUR ---
LINDA IN ROOM WITH PATIENT
--- NOTE | 2016-10-20 21:20 | NUR ---
URINE COLLECTED AND TAKEN TO LAB
[2016-10-20] MEDS ORDERED: ROCEPHIN 1,000 MG in NS 100ML 100 ML IV STA (21:24)
[2016-10-20] MEDS ORDERED: ROCEPHIN ONE ×2 (21:25)
[2016-10-20] MEDS ORDERED: NS 100ML 100 ML IV ONE ×4 (21:25→21:46)
[2016-10-20 21:26] LABS: BASOPHIL % 0.3 % (0.0-0.2); EOSINOPHIL # 0.6 10^3/uL (0.0-0.2); EOSINOPHIL % 6.4 % (0.0-5.0); HEMATOCRIT 36.5 % (37.0-53.0); HEMOGLOBIN 11.9 g/dL (13.9-16.3); LYMPHOCYTES # 2.1 10^3/uL (1.0-4.8); MEAN CELL HGB 30.2 pg (26-34); MEAN CELL HGB CONCENTRATION 32.6 g/dL (33-37); MEAN CORP VOLUME 92.6 fL (78-100); MEAN PLATELET VOLUME 8.5 fL (7.8-11.0); MONOCYTES # 0.6 10^3/uL (0.3-0.8); MONOCYTES % 6.3 % (5.0-12.0); NEUTROPHILS % 64.8 % (41.0-85.0); RED BLOOD CELL 3.94 10^6/uL (4.50-5.90); RED CELL DISTRIBUTION WIDTH 14.5 % (11.5-14.5); WHITE BLOOD CELL 9.3 10^3/uL (4.5-11.0)
[2016-10-20 21:28] LABS: BILIRUBIN,URINE NEGATIVE (NEGATIVE); PH,URINE 6.5 (5.0-6.0); UROBILINOGEN,URINE NORMAL (NEGATIVE)
--- NOTE | 2016-10-20 21:34 | NUR ---
BED SORES PATIENT HAS 2 BED SORES, ONE ON RIGHT BUTTOCKS AND ONE ON LEFT BUTTOCKS. NO PICTURES TAKEN IN ER.
[2016-10-20 21:40] LABS: APPEARANCE,URINE SLIGHTLY CLOUDY (CLEAR); UA COLOR YELLOW (YELLOW)
[2016-10-20 21:41] LABS: WBC,URINE TNTC WBC/HPF (0-2)
[2016-10-20] MEDS ORDERED: NS 1000ML 1,000 ML IV STA (21:43)
[2016-10-20] MEDS ORDERED: GENTAMICIN SULFATE IM STA (21:43)
[2016-10-20 21:44] LABS: ALANINE AMINOTRANSFERASE 22 U/L (12-78); ALBUMIN 2.6 g/dL (3.4-5.0); ALKALINE PHOSPHATASE 91 U/L (50-136); ANION GAP 11.3; ASPARTATE AMINO TRANSFERASE 19 U/L (0-35); CALCIUM 8.9 mg/dL (8.4-10.5); CARBON DIOXIDE 30.9 mmol/L (20.0-32); CREATININE SERUM 0.74 mg/dL (0.59-1.40); GLUCOSE 110 mg/dL (70-110)
[2016-10-20 21:46] LABS: INR 0.9; PROTHROMBIN PROTIME 9.9 SEC (9.8-11.9)
[2016-10-20] MEDS ORDERED: NS 1000ML 1,000 ML ONE ×2 (21:46)
[2016-10-20 21:47] LABS: PARTIAL THROMBOPLASTIN TIME 25.6 SEC (24.67-30.72)
[2016-10-20] MEDS ORDERED: GENTAMICIN SULFATE ONE ×2 (21:47)
--- NOTE | 2016-10-20 21:57 | NUR ---
GENTAMICIN GIVEN IV ORDERED IM BUT WAS GIVEN IV PER LINDA
--- NOTE | 2016-10-20 22:02 | NUR ---
WOUND CULTURE COLLECTED AND TAKEN TO LAB
[2016-10-20] MEDS ORDERED: TORADOL ONE ×2 (22:05)
[2016-10-20] MEDS ORDERED: TORADOL IV STA (22:05)
--- NOTE | 2016-10-20 22:30 | NUR ---
admission report from er received, care assumed,pt transferred to med/surg floor from ed via house fellow accompanied by ed rn, transferred to bed from stretcher by nurses x3, vss, denies need or pain, assessment completed at this time
[2016-10-20 23:00] VITALS: BP 105/64
--- NOTE | 2016-10-20 23:30 | NUR ---
pt has own brief, educated on briefs and skin breakdown , states that he wants to wear brief regardless of hospital policy or advice
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
--- NOTE | 2016-10-21 00:15 | NUR ---
skin assessment skin assessment completed , wounds cleansed and pictures taken, pt very unkept, skin sloughing and feet crusty with peeling skin, dressins removed on right and left buttocks very soiled and unclean
[2016-10-21] MEDS: TYLENOL PO PRN ×4 (00:42→18:43)
[2016-10-21] MEDS ORDERED: GENTAMICIN SULFATE ONE (01:02)
[2016-10-21] MEDS ORDERED: GENTAMICIN 80 MG/NS 100 ML PB 100 ML IV ONE (01:04)
--- NOTE | 2016-10-21 02:50 | PRM.ACF1 ---
Admission Criteria Forms SKIN AND WOUND CARE Clinical Indications for Inpatient Care (Place 'X' for any and all applicable criteria): Ongoing inpatient care may be indicated for pressure, venous, arterial, or neuropathic ulcers, with ANY ONE of the following (2)(3)(8)(9)(21)(25): [ ]I. Need for ANY ONE of the following(26) [ ]a) Pressure ulcer closure procedures [ ]b) Skin grafting [ ]c) Wound debridement [ ]d) Dressing change under general anesthesia [ ]e) Arterial revascularization procedures(19) (Also use Aortofemoral or Aortoiliac Bypass or Femoral Popliteal Bypass Criteria as appropriate) [ ]f) Amputation (Also use Foot: Transmetatarsal Amputation or Knee: Amputation Above or Below Knee Criteria as appropriate) [ ]g) Diverting colostomy [ ]h) Other significant surgical treatment [ X]II. Infection requiring inpatient care as indicated by ALL of the following (27) [X ]a) ANY ONE of the following signs of infection: [ ]i) Poorly approximated incision line. [ ]ii) Excessive drainage [ ]iii) Foul odor [ ]iv) Pus [X ]v) Increased redness [ ]vi) Breakdown in tissue after suture removal [ ]vii) Fever [ X]b) ANY ONE of the following findings: [ ]i) Mental status changes [ ]ii) Dehydration [X ]iii) Bacteremia [ ]iv) Perineal infection [ ]v) Hemodynamic instability [ ]vi) High-risk conditions, such as ANY ONE of the following: [ ]1) Poorly controlled diabetes [ ]2) Cirrhosis [ ]3) Neutropenia [ ]4) Asplenia [ ]5) HIV infection [ ]6) Immunosuppression Extended stay beyond goal length of stay for primary condition may be needed until ALL of the following are present(1)(2)(13)(21)(27): [ ]a) Tissue necrosis absent or treatment plan manageable at lower level of care [ ]b) Fistulas, tunneling, or underlying deep tissue infection absent or treated [ ]c) Purulence and tissue breakdown absent or improved [ ]d) Ulcer surgical repair absent or healing without complications [ ]e) Wound infection absent or manageable at lower level of care [ ]f) Comorbidities absent or manageable at lower level of care The original [facility] [employer] content created by Daniel Mcintyre has been revised. The portions of the content which have been revised are identified through the use of italic text or in bold, and [facility] has neither reviewed nor approved the modified material. All other unmodified content is copyright [facility]. Please see references footnoted in the original [facility] edition 2016 Is [facility]/Daniel's added/comple: YES DONNY THOMPSON [facility] Oct 21, 2016 02:50
[2016-10-21 02:57] VITALS: BP 136/85
--- NOTE | 2016-10-21 07:00 | NUR ---
REPORT RECEIVED FROM EMILY FULLER.
--- NOTE | 2016-10-21 07:10 | NUR ---
report report given care relinquished
[2016-10-21 08:00] VITALS: BP 107/69
--- NOTE | 2016-10-21 08:30 | NUR ---
ASSESSMENT COMPLETED. PATIENT AWAKE AND ALERT. REPORTS INTERMITTENT GENERALIZED PAIN. SKIN WARM AND DRY. RESPIRATIONS UNLABORED. NO DISTRESS NOTED. DRESSING CLEAN DRY AND INTACT TO PUBIC AREA. BEY DRAINING YELLOW URINE. BRACES PRESENT TO BILATERAL LOWER EXTREMITIES DUE TO FOOT DROP. SKIN TO LOWER LEGS AND FEET DRY AND CRUSTY. NAILS LONG. SR UP X2. CALL LIGHT WITHIN REACH.
[2016-10-21] MEDS: CYMBALTA PO SCH ×2 (10:38→21:20)
[2016-10-21] MEDS: NEURONTIN PO SCH ×3 (10:38→21:20)
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
[2016-10-21 12:00] VITALS: BP 116/76
--- NOTE | 2016-10-21 12:29 | HPH ---
ADMIT DATE: 10/21/2016 HISTORY OF PRESENT ILLNESS: The patient was seen in the Emergency Room complaining of some discharge around the suprapubic tube. The patient has a recent suprapubic vesicolithotomy with insertion of cystostomy tube. The patient has a history of neurogenic bladder and he was discharged a few days ago, doing well; however, ____ came back to the Emergency Room because of the complain that there was some leakage of fluid around the tube, so the patient was then examined, the cystostomy tube is still in place. The wound is intact with skin maldonado still in place. There is some redness in the area of the incision and some induration; however, with slight discharge. The abdomen is soft. No flank pain. So, advised the Emergency Room to get a culture done and urine culture and some blood tests and IV fluid was started with Rocephin and ____. Dr. Kaiser, the hospitalist is going to admit the patient for further postop care ____ suprapubic wound infection, status post suprapubic cystostomy. Joshua Musa MD DR: RAÚL/meme JOB# [id number]
[2016-10-21] MEDS: ROCEPHIN 1,000 MG in NS 100ML 100 ML IV SCH (13:22)
--- NOTE | 2016-10-21 14:45 | NUR ---
PATIENT REPORTS URINE LEAKING AROUND SUPRAPUBIC BEY. DRESSING REMOVED AND DRESSING SATURATED WITH URINE. JUDITH INTACT TO INCISION LINE. NEGATIVE REDNESS PRESENT. INCISION CLEANSED WITH SKIN CLEANSER. PATTED DRY. DRAIN SPONGES APPLIED, ABD PADS X2. SECURED WITH TAPE.
--- NOTE | 2016-10-21 15:00 | NUR ---
OFFERED PATIENT A BED BATH AND FOOT SOAK DUE TO BUILT UP CRUSTY SKIN. PATIENT REFUSED. PATIENT STATES "I WILL TAKE A BATH AT HOME AND MY CAN HELP ME." INSTRUCTED RE: IMPORTANCE OF HYGIENE RELATED TO HEALING. PATIENT AGREES TO A BED BATH IF THE WATER IS PREPARED AND HE CAN DO IT HIMSELF. WATER PREPARED, RAGS, TOWELS AND SOAP PLACED AT BEDSIDE.
[2016-10-21 16:00] VITALS: BP 114/79
--- NOTE | 2016-10-21 16:00 | NUR ---
PATIENT HAS NOT BATHED OR USED WATER PREPARED FOR BATH. ENCOURAGED AND REFUSED.
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
--- NOTE | 2016-10-21 18:30 | NUR ---
received report from 0630 shift
[2016-10-21] MEDS ORDERED: TYLENOL ONE (18:40)
[2016-10-21 21:03] VITALS: BP 118/82
[2016-10-21] MEDS: GENTAMICIN SULFATE IV SCH (21:21)
[2016-10-21] MEDS: NS IV SCH (21:21)
--- NOTE | 2016-10-21 21:38 | PRM.PN ---
Subjective Subjective Subjective Pt doing ok Patient History: No known health problems 19 CHILD 19 CHILD 19 CHILD 19 CHILD Unknown 33 FATHER VTE VTE Risk Total Score: 3 VTE Risk Score VTE Risk: Score 0-1 = Low Risk (Aggressive mobilization; early ambulation; no VTE prophylaxis required) Score 2: Moderate Risk (Intermittent/Pneumatic Compression Device OR Lovenox/Heparin/Coumadin) Score 3-4: High Risk (Intermittent/Pneumatic Compression Device AND Lovenox/Heparin/Coumadin) Score > or =5: Highest Risk (Intermittent/Pneumatic Compression Device AND Lovenox/Heparin/Coumadin) Antico:Hep/LMWH/Coum/Xarelto: Yes Mechanical device ordered: Yes Review of Systems Constitutional: No: Chills, Fever, Sweats Eyes: No: Conjunctivae inflammation, Eyelid inflammation, Pain, Vision change ENT: No: Ear discharge, Ear pain, Nose discharge, Nose pain Respiratory: No: Cough, Dry, SOB with excertion, Shortness of breath Cardiovascular: No: Chest Pain, Orthopnea, Palpitations, Paroxysmal Noc. Dyspnea Gastrointestinal: No: Abdominal Pain, Diarrhea, Nausea, Vomiting Musculoskeletal: : back painNo: arm pain, neck pain, other, shoulder pain Skin: No: Bruising, Jaundice, Lesions, Rash Neurological: No: Confusion, Seizures, Weakness Allergies: Coded Allergies: No Known Allergies (Unverified , 09/17/16) Scheduled Duloxetine Hcl (Cymbalta) 1 CAP PO BID (Reported) Gabapentin (Gabapentin) 1 CAP PO TID (Reported) Scheduled PRN Acetaminophen With Codeine (Tylenol With Codeine #4 Tablet) 1 TAB PO Q4 PRN PRN PAIN (Reported) Discontinued Medications Flavoxate Hcl (Flavoxate Hcl) 100 MG PO TID Discontinued Reason: Discontinue Sulfamethoxazole/Trimethoprim (Bactrim Ds Tablet) 1 EACH PO BID Discontinued Reason: Discontinue Objective Vitals and I/O Vital Sign - Last 24 Hours 10/20/16 10/20/16 10/21/16 10/21/16 22:05 23:00 02:57 02:59 Temp 98.8 98.8 98.1 Pulse 82 74 81 Resp B/P 134/85 105/64 136/85 Pulse Ox 97 94 96 O2 Delivery Room Air Room Air Room Air 10/21/16 10/21/16 10/21/16 10/21/16 08:00 09:00 12:00 16:00 Temp 98.4 98.5 98.2 Pulse 69 96 58 Resp 18 18 18 B/P 107/69 116/76 114/79 Pulse Ox 94 66 95 O2 Delivery Room Air 10/21/16 21:03 Temp 97.7 Pulse 71 Resp 16 B/P 118/82 Pulse Ox 96 Intake and Output 10/20/16 10/20/16 10/21/16 15:00 23:00 07:00 Intake Total 2000 ml Output Total 860 ml Balance 1140 ml General: Alert, No acute distress HEENT: Atraumatic, Mucous membr. moist/pink Neck: Supple, No LAD Lungs: Clear to auscultation, Normal air movement Heart: Normal S1, Normal S2 Abdomen: Normal bowel sounds, Soft, No tenderness Extremities: No clubbing, No cyanosis Skin: No rashes Neuro: Normal speech Psych/Mental Status: Mental status NL, Mood NL Medication Reconciliation Scheduled Duloxetine Hcl (Cymbalta) 1 CAP PO BID (Reported) Gabapentin (Gabapentin) 1 CAP PO TID (Reported) Scheduled PRN Acetaminophen With Codeine (Tylenol With Codeine #4 Tablet) 1 TAB PO Q4 PRN PRN PAIN (Reported) Discontinued Medications Flavoxate Hcl (Flavoxate Hcl) 100 MG PO TID Discontinued Reason: Discontinue Sulfamethoxazole/Trimethoprim (Bactrim Ds Tablet) 1 EACH PO BID Discontinued Reason: Discontinue Assessment/Plan Assessment/Plan Assessment/Plan 46 yo male with paraplegia, resolving UTI, cystostomy wound - await cx results - cont IV abx - urology following Problems: Patient History: No known health problems 19 CHILD 19 CHILD 19 CHILD 19 CHILD Unknown 33 FATHER ROSE WARREN MD Oct 21, 2016 21:38
[2016-10-22] VITALS (7 sets, daily range): BP systolic 104–129; BP diastolic 68–90
--- NOTE | 2016-10-22 05:47 | NUR ---
dietary consult for low albumin per protocol
[2016-10-22] MEDS: CYMBALTA PO SCH (08:52)
[2016-10-22] MEDS: NEURONTIN PO SCH ×2 (08:52→14:07)
[2016-10-22] MEDS: TYLENOL PO PRN (10:27)
--- NOTE | 2016-10-22 11:28 | PNH ---
DATE: 10/22/2016 This is a followup visit for this patient, status post vesicolithotomy with suprapubic cystostomy. The patient is under the care of Dr. Kaiser and today the dressing was changed. There is ____ a little bit of purulent drainage around the cystostomy tube and the culture was ____ awaiting for the report of the wound culture and urine culture by Dr. Kaiser. He is still on an IV antibiotic of Rocephin and ____. Today the wound is healing, the skin maldonado were removed and also the ____ that was anchored to the skin was also removed. The cystostomy tube is in place and is draining clear urine in the urinary drainage bag. The wound was cleaned and a new dressing was applied and the patient was then advised that if he would be discharged by Dr. Kaiser, at home going back to [place], I advised the family to change the dressing everyday and to be followed and to call my office p.r.n. Joshua Musa MD DR: RAÚL/meme JOB# [id number]
[2016-10-22] MEDS: ROCEPHIN 1,000 MG in NS 100ML 100 ML IV SCH (14:08)
[2016-10-22] MEDS ORDERED: AMOX1TAB63 PO (15:21)
--- NOTE | 2016-10-22 15:24 | PRM.DC ---
Discharge Summary Date of Arrival on Unit: Oct 12, 2016 Reason for Visit: Cellulitis near suprapubic site and UTI Patient History: No known health problems 19 CHILD 19 CHILD 19 CHILD 19 CHILD Unknown 33 FATHER History Present Illness: (1) UTI (urinary tract infection) Status: Acute ICD Code: N39.0 SNOMED: 53697241 Assessment & Plan: Augmentin BID for 10 days (2) Cellulitis, abdominal wall Status: Acute ICD Code: L03.311 SNOMED: 59278983 Assessment & Plan: Augmentin BID for 10 days General: Alert, Oriented X3, Cooperative HEENT: PERRLA, EOMI Neck: Supple, No JVD Lungs: Clear to auscultation, Normal air movement Heart: Regular rate, Normal S1, Normal S2 Abdomen: Normal bowel sounds, Soft, No tenderness Extremities: No clubbing, No cyanosis Skin: No rashes, No breakdown Neuro: Normal speech, Cranial nerves 3-12 NL Psych/Mental Status: Mental status NL, Mood NL Scheduled Amoxicillin/Potassium Clav (Augmentin 875-125 Tablet) 1 EACH PO BID Duloxetine Hcl (Cymbalta) 1 CAP PO BID (Reported) Gabapentin (Gabapentin) 1 CAP PO TID (Reported) Scheduled PRN Acetaminophen With Codeine (Tylenol With Codeine #4 Tablet) 1 TAB PO Q4 PRN PRN PAIN (Reported) Discontinued Medications Flavoxate Hcl (Flavoxate Hcl) 100 MG PO TID Discontinued Reason: Discontinue Sulfamethoxazole/Trimethoprim (Bactrim Ds Tablet) 1 EACH PO BID Discontinued Reason: Discontinue Course Blood Pressure Systolic: 119 Blood Pressure Diastolic: 76 Blood Pressure Mean: 90 Problem Qualifiers (1) UTI (urinary tract infection): Urinary tract infection type: acute cystitis Hematuria presence: without hematuria Qualified Code: N30.00 - Acute cystitis without hematuria YORDY MOSQUEDA MD Oct 22, 2016 15:24
[2016-10-22] MEDS ORDERED: AUGMENTIN 875-125 TABLET ONE (17:05)
--- NOTE | 2016-10-22 17:25 | NUR ---
Incontinence Patient incontinent of brown soft formed bowel. Julianne care given. Linens changed. Buttocks and sacral area assessed for skin breakdown. Redness noted. Applied skin barrier cream to sites. Brief placed per patients request. Educated patient on s/s of skin breakdown, patient verbalized understanding. Educated patient on the importance of notifying staff when feels the urge to defecate, patient verbalized understanding. Educated patient on self neglect and personal hygiene, patient verbalized understanding, reinforcement needed. Will continue to monitor. Call light within reach.
--- NOTE | 2016-10-22 17:30 | NUR ---
Notified SS Notified Hyun with SS for APS consult
[2016-10-22] MEDS ORDERED: AUGMENTIN 875-125 TABLET PO STA (18:17)
== END 2016-10-22 17:05 | disposition home or self-care (01) | DRG 699 ==
LOC: ER 20:25 → MS 21:44 → OBSVTOIN 23:00
PROVIDERS: ADMIT Pediatrics; ATTEND Pediatrics
DX: N99.511 Cystostomy infection (principal); L03.311 Cellulitis of abdominal wall; G82.20 Paraplegia, unspecified; N30.00 Acute cystitis without hematuria; G89.4 Chronic pain syndrome; B96.20 Unspecified Escherichia coli [E. coli] as the cause of diseases classified elsewhere; F17.210 Nicotine dependence, cigarettes, uncomplicated; Z79.899 Other long term (current) drug therapy; Z87.828 Personal history of other (healed) physical injury and trauma
CPT/HCPCS: 36415; 80053; 81000; 85025; 85610; 85730; 87070; 87077; 87086; 87186; 96372; 96374; 96375; 99285; G0378; J0696; J1580; J1885; J7030; A9270; C9399

== ENCOUNTER 2016-11-03 00:34 | Day surgery (SDC) | payer MEDICAID ==
[2016-11-03] VITALS (8 sets, daily range): BP systolic 123–164; BP diastolic 70–98
[~2016-11-03] VITALS: Ht 193 cm; Wt 63.5 kg
[~2016-11-03 00:34] MED LIST changes: +AMOX1TAB63 PO
[2016-11-03] MEDS ORDERED: LACTATED RINGERS 1,000 ML ONE (05:14)
[2016-11-03] MEDS ORDERED: LEVAQUIN 100 ML IV ONE ×2 (05:15→07:30)
[2016-11-03] MEDS ORDERED: TYLENOL PO STA (06:59)
[2016-11-03] MEDS ORDERED: LACTATED RINGERS 1,000 ML IV SCH (07:30)
[2016-11-03] MEDS ORDERED: ROCEPHIN ONE (07:40)
[2016-11-03] MEDS ORDERED: NS 100ML 100 ML IV ONE (07:41)
[2016-11-03] MEDS ORDERED: TYLENOL PO ONE (08:08)
[2016-11-03 08:12] LABS: BASOPHIL % 0.3 % (0.0-0.2); EOSINOPHIL # 0.4 10^3/uL (0.0-0.2); EOSINOPHIL % 3.8 % (0.0-5.0); HEMOGLOBIN 13.7 g/dL (13.9-16.3); LYMPHOCYTES # 3.4 10^3/uL (1.0-4.8); LYMPHOCYTES % 33.8 % (24.0-44.0); MEAN CELL HGB 30.5 pg (26-34); MEAN CELL HGB CONCENTRATION 31.9 g/dL (33-37); MEAN CORP VOLUME 95.8 fL (78-100); MONOCYTES # 0.7 10^3/uL (0.3-0.8); MONOCYTES % 7.3 % (5.0-12.0); NEUTROPHIL # 5.4 10^3/uL (1.8-7.7); NEUTROPHILS % 54.5 % (41.0-85.0); RED CELL DISTRIBUTION WIDTH 16.2 % (11.5-14.5)
[2016-11-03 08:32] LABS: CARBON DIOXIDE 24.2 mmol/L (20.0-32)
[2016-11-03 08:40] LABS: CALCIUM 9.4 mg/dL (8.4-10.5)
[2016-11-03] MEDS ORDERED: ROCEPHIN 1,000 MG in NS 100ML 100 ML IV ONE (09:00)
[2016-11-03] MEDS ORDERED: QUELICIN ONE (09:03)
[2016-11-03] MEDS ORDERED: VERSED ONE (09:04)
[2016-11-03] MEDS ORDERED: DIPRIVAN IV ONE (09:04)
[2016-11-03] MEDS ORDERED: SUBLIMAZE ONE ×2 (09:04→11:19)
[2016-11-03] MEDS ORDERED: XYLOCAINE ONE (09:05)
[2016-11-03] MEDS ORDERED: ZOFRAN ONE (09:06)
[2016-11-03] MEDS ORDERED: TORADOL ONE (09:06)
[2016-11-03] MEDS ORDERED: ZEMURON IV ONE (09:06)
[2016-11-03] MEDS ORDERED: ROBINUL ONE (09:07)
[2016-11-03] MEDS ORDERED: NEOSTIGMINE ONE (09:07)
[2016-11-03] MEDS ORDERED: SODIUM CHLORIDE IR ONE ×2 (10:16)
[2016-11-03] MEDS ORDERED: WATER ONE (10:19)
[2016-11-03] MEDS ORDERED: SULF1TAB24 PO (11:39)
[2016-11-03] MEDS ORDERED: OXYB10TA PO (11:40)
--- NOTE | 2016-11-03 13:43 | OPH ---
DATE OF SURGERY: 11/03/2016 PREOPERATIVE DIAGNOSIS: Status post suprapubic cystostomy with leakage of urine around the cystostomy tube. FINAL DIAGNOSES: Status post suprapubic cystostomy, chronic cystitis and neurogenic bladder. PROCEDURES: Cystogram and cystoscopy. DESCRIPTION OF PROCEDURE: The patient was brought to the cystoscopy room and was put in supine position on the cystoscopy table. After the patient was given a satisfactory and adequate general anesthesia, the patient was placed in the lithotomy position. The suprapubic region ____ was then prepped and draped aseptically in the usual manner. First, the suprapubic tube was clamped and a Hinojosa catheter was inserted per urethra up to the bladder and I injected with the dye and cystogram revealed no evidence of leakage of the dye; however, there was a small capacity bladder noted. After this was done, a cystoscopy was performed by inserting a 17-Andorran cystoscope through the bladder. With the use of the right angle lens, the bladder was visualized. There was chronic congestion noted. ____ the wound was healed and the cystostomy tube was easily noted and the leak of the urine was noted to be around the area of the cystostomy tube. Bladder was irrigated. The return flow was clear. The procedure was terminated. A urethral Hinojosa catheter was inserted and then the balloon of the cystostomy tube was inflated by another 5 mL to make the balloon a little bit larger and then ____ put pressure towards the dome of the bladder to avoid leakage. Dressing was applied and the procedure was terminated. The patient was awakened, was transferred to the recovery room in stable condition. Case will be discussed with the family and with the patient. Joshua Musa MD DR: RAÚL/meme JOB# [id number]
--- NOTE | 2016-11-06 10:45 | DIREP ---
PROCEDURE: XRAY CYSTOGRAM 3VWS COMPARISON: None. INDICATIONS: CYSTOGRAM WITH CYSTO, 26.3 SEC FLUORO TIME; 2.78 mGy TECHNIQUE: Routine retrograde cystogram FINDINGS: No filling defects are seen within the bladder. There is no evidence of reflux. Complete emptying is present in the bladder. Incidental note is made of hardware in the lower lumbar spine extending across the sacroiliac joints and in the right acetabulum. CONCLUSION: No abnormalities of the bladder. Dictated by: Adrián Granger M.D. on 11/03/2016 at 12:29 PM [facility]
== END 2016-11-03 12:03 | disposition home or self-care (01) ==
LOC: SURG 00:34
PROVIDERS: ATTEND Urology
DX: N30.20 Other chronic cystitis without hematuria (principal); F17.210 Nicotine dependence, cigarettes, uncomplicated
CPT/HCPCS: 36415; 51600; 74430; 80048; 85025; A4338; J0696; J1885; J1956; J2250; J2405; J2710; J3010 ×2; J3490 ×2; J7030; J7120; J0330

== ENCOUNTER 2016-12-10 09:16 | Emergency (ER) | payer MEDICAID ==
[~2016-12-10] VITALS: Ht 193 cm; Wt 68.0 kg
[~2016-12-10 09:16] MED LIST changes: +OXYB10TA PO
[2016-12-10] MEDS ORDERED: SODIUM CHLORIDE IR ONE (09:39)
[2016-12-10 10:30] VITALS: BP 116/79
--- NOTE | 2016-12-10 11:46 | CNH ---
DATE OF CONSULTATION: 12/10/2016 The patient was seen in the emergency room. This is a 46-year-old who has a history of neurogenic bladder and he has a suprapubic cystostomy. So, the cystostomy was then changed today to 26-Urdu. The catheter was irrigated. Return flow was clear. Dressing was changed. The patient tolerated the procedure well. Joshua Musa MD DR: RAÚL/meme JOB# [id number]
== END 2016-12-10 10:20 | disposition home or self-care (01) ==
LOC: ER 09:16
DX: Z43.5 Encounter for attention to cystostomy (principal)
CPT/HCPCS: 51702; 99284; A4338; J7030